=== PATIENT | female | born 1945 | race Caucasian/White ===

== ENCOUNTER 2017-03-04 10:43 | Day surgery (SDC) | payer MEDICARE ==
[~2017-03-04] VITALS: Ht 163.8 cm; Wt 84.8 kg
[2017-03-04] VITALS (10 sets, daily range): BP systolic 141–165; BP diastolic 68–80; PULSE 58–80; RESP 11–17; O2SAT 94–100
--- NOTE | 2017-03-04 10:25 | PCM.HPANE ---
Patient Data Surgeon Admitting Provider: Attending Provider:Kyle Bean MD Primary Care Physician:Ashlyn Wells MD Other Provider:Ana Carbajalingham Anesthesia Reason for Visit Left Breast Cancer, Right Breast Skin Cyst Ht/WT & BMI Height (Feet): 5 Height (Inches): 4.5 Weight (Kilograms): 84.82 Body Mass Index 31.00 Allergies Coded Allergies: codeine (Verified Allergy, Unknown, gi upset, 02/28/17) Past Anesthesia History Anesthesia History: Denies:: Abnormal Airway, Anesthesia Reactions, Difficult Intubation, Fam Anesthesia Reaction Diabetes History Hx Diabetes?: No MRSA MRSA: No Medications Hypertension Medication: Yes Home Meds Incl Beta Tala: Yes Reported Medications Cholecalciferol (Vitamin D3) (Vitamin D)1,000 Unit Tablet1,000 Unit PO DAILY #1 BOTTLE Ref 0 02/04/17 Aspirin 81 Mg [id number] Mg PO DAILY Ref 0 02/04/17 Hydrochlorothiazide 25 Mg [id number] Mg PO DAILY 30 Days Ref 0 02/04/17 Metoprolol Tartrate 25 Mg Giwhty35.5 Mg PO BID 30 Days Ref 0 02/04/17 Meloxicam 7.5 Mg Tablet7.5 Mg PO DAILY 30 Days Ref 0 02/04/17 History History of ENT Problems?: No HEENT History: Denies:: Abnormal Airway Cataracts Difficult Intubation Dysphagia Glaucoma Hearing Problem Sinus Problem TMJ Denture Type: Full- Upper Teeth Condition: Missing Teeth Hx of Heart Problems?: Yes Cardiovascular History: Positive for:: Hypertension Irregular Heartbeat (hx palpitations- MPS done 2012) Denies:: AICD Abdominal Aortic Aneurism Atrial Fibrillation Cardiac Surgery Chest Pain Congestive Heart Failure Coronary Artery Disease Edema Heart Murmur Pacemaker Rheumatic Fever Thrombophlebitis Valvular Heart Disease (ef 83% 2012) Hx of Respiratory Problem?: Yes Respiratory History: Positive for:: Tuberculosis (+ reaction 30years ago/ treated ) Denies:: Asthma COPD Emphysema Oxygen Administration Pneumonia Use of C-PAP Machine Hx Neurologic Problems?: No Neurological History: Denies:: CVA Headaches Multiple Sclerosis Parkinson's Disease Seizures TIA Hx of GI Problems?: Yes Hx of Problems?: No Genitourinary History: Denies:: Kidney Stones Urinary Tract Infection Female Hx: Positive for:: Problems with Breasts? (left breast current admission problem) Denies:: Currently (post menopausal) Skin History: Denies:: History Skin Disorders? (breast bx sites) Pressure Ulcers Hx Musculoskeletal Problems?: No Musculoskeletal History: Positive for:: Osteoarthritis (hands) Denies:: Back Injury Fibromyalgia Joint Replacement Myasthenia Gravis Rheumatoid Arthritis Systemic Lupus Hx of Psycho/Social Problems?: Yes Psycho Social History: Positive for:: Anxiety (situational related to dx- ) Hx Surgeries?: Yes (gallbladder,ovary & tubes) Hx Any Other Health Problems?: Yes Other History: Positive for:: Cancer (left breast cancer) Denies:: Thyroid Disease History Blood Transfusions: Positive for:: Blood Transfusions Hx Diabetes: No Hx Alcohol Use: NoAlcoholic Drinks Per Day: about 2 drinks monthlyHx Substance Use: Yes (rare use of edible marijuana) Smoking Status: Former Smoker Have You Smoked inLast 12 mo: No Stop/Bang Treated for Sleep Apnea?: No Do You Have a CPAP Machine?: No S-Snoring: Do You Snore Loudly: No T-Tired: feel tired, fatigued: No O-Obsered: Observed not breath: No P-Blood Pressure: treated: Yes B- Body Mass Index > 35 kg/m2: No A- Age over 50: Yes N- Neck Large Circumference: No G- Gender Male: No RA Total Score: 2 RA Risk Assessment: Low Risk, <3 Yes Risk Assessment Category Category 1A: Patient has history of documented sleep apnea, and HAS NOT received any narcotic, sedative or anesthesia administration during this stay. Category 1B: Patient has history of documented sleep apnea, and HAS received any narcotic , sedative or anesthesia administration during this stay Category 2: Patient has SUSPECTED Obstructive Sleep Apnea, and HAS received any narcotic , sedative or anesthesia administration during this stay. Category 3: Patient has SUSPECTED Obstructive Sleep Apnea and HAS NOT received narcotic, sedative or anesthesia administration during this stay. Category 4: Outpatient in Procedural Areas with known sleep apnea or who screen positive for High Risk via the STOP/BANG questionnaire. Exam Exam General Appearance: Alert, Oriented X3, Cooperative, No Acute Distress HEENT/AIRWAY: MP 2 Lungs: Clear to Auscultation, Normal Air Movement Heart: Exam Unremarkable, Regular Rate/Rhythm, No Murmurs/Rubs/Gallops Plan Impression Patient chart reviewed, patient interviewed and anesthestic plan with risks, benefits, and alternatives discussed, and informed consent obtained. ASA Physical Status: ASA2 Mod Systemic Disease Anesthetic Plan: GA Bene/Risks/Altern/Consents: Yes HP Complete Prior to Induction: Yes Vadim Su MD Mar 04, 2017 10:25
[~2017-03-04 10:43] MED LIST: ASPI-973 PO; CHOL100043 PO; Dexamethasone 4 mg/mL Inj IVPUSH PRN; EPHEDrine Sulfate 50 mg/mL Inj IVPUSH PRN; HYDR25TA4 PO; Lactated Ringer's 1,000 ML IV SCH; Lactated Ringer's 500 ML IV PRN; MELO-259 PO; METO25TA6 PO; MetoCLOpramide 5 mg/mL 2 mL Inj IVPUSH PRN; Ondansetron 2 mg/mL 2 mL Inj IVPUSH PRN; Phenylephrine 10,000 mCg/mL Inj IVPUSH PRN; fentaNYL-PF 50 mCg/mL 2 mL Inj IVPUSH PRN
[2017-03-04] MEDS ORDERED: fentaNYL-PF 50 mCg/mL 2 mL Inj ONE (10:44)
[2017-03-04] MEDS ORDERED: Propofol 10,000 mCg/mL 20 mL Inj ONE (10:44)
[2017-03-04] MEDS ORDERED: Ondansetron 2 mg/mL 2 mL Inj ONE (10:44)
[2017-03-04] MEDS ORDERED: Dexamethasone 4 mg/mL Inj ONE (10:44)
[2017-03-04] MEDS ORDERED: Ketamine 10 mg/mL 20 mL Inj ONE (10:44)
[2017-03-04] MEDS ORDERED: Lactated Ringer's 1,000 ML IV ONE (11:30)
[2017-03-04] MEDS ORDERED: Bupivacaine-MPF 0.5% W/EPI 30 mL Inj INFILTRATE ONE (15:56)
[2017-03-04] MEDS: Lactated Ringer's 1,000 ML IV SCH ×2 (17:47→18:08)
[2017-03-04] MEDS ORDERED: HYDROcodone-APAP 5-325 mg Tablet PO PRN (18:00)
--- NOTE | 2017-03-04 18:02 | PCM.DISURG ---
Surgical Discharge Instruction Date of Service Mar 04, 2017 Dates of Hospitalization Date of Hospital Admission Providers Admitting Physician: Primary Care Physician: Ashlyn Wells MD Attending Physician: Kyle Bean MD Discharge Diagnosis Discharge Diagnosis Left breast cancer, right breast atypical ductal hyperplasia, right breast cyst Diet Discharge Diet: No restrictions Activity Discharge Activity-General: No restrictions Dressing and Incisional Care Dressing Instructions: Dermabond will peel off gradually Hygiene: May shower Follow Up Plan Follow Up Plan With Dr. Bean in surgery clinic in 7-10 days Call your provider for: Fever (over 101.5), Discharge @ incision, pus discharge Kyle Bean MD Mar 04, 2017 18:02
--- NOTE | 2017-03-04 18:08 | PCM.SURGOP ---
Surgical Operative Report Date of Service: Mar 04, 2017 Pre Operative Diagnosis Left breast cancer, right breast atypical ductal hyperplasia, right breast skin cyst Post Operative Diagnosis Same Procedure: Wire localized right partial mastectomy, wire localized left partial mastectomy , left axillary sentinel lymph node biopsy, excision of right breast skin cyst Surgeon and Application Support Analyst: Surgeon: Kyle Bean MD Assistants: Kwan Vega PA-C Indication for Procedure 71-year-old woman who was found on screening mammogram to have a 1.3 cm invasive ductal carcinoma of the left inferior breast, ER/CA positive, HER-2- negative. Her breast MRI showed the known neoplasm, but also an area of non- mass-like enhancement in the right breast 4 o'clock position. MRI guided biopsy was obtained from that area, which showed focal atypical ductal hyperplasia. Also, at the time of her initial screening mammogram, she had a skin cyst in the right inframammary crease medially which ruptured. After discussion of risks and benefits, she agreed to proceed with wire localized partial mastectomy of both the known cancer on the left and area of ADH on the right, left axillary sentinel node biopsy, and excision of right breast skin cyst. Findings: There was fairly extensive hematoma already present within the right breast tissue from her prior MRI guided biopsy. There were 2 sentinel nodes on the left. The first sentinel node had an ex vivo count of 569. The second sentinel node had an ex vivo count of 313. The background count was 19. Procedure Details Preoperatively, the patient had ultrasound-guided wire placement for the known left breast cancer, with mammographic confirmation. She also had 2 separate wires placed into the right breast with MRI guidance, but no mammographic confirmation was performed. The MRI guidewires were bracketing the known lesion. She then had a left breast injection for sentinel lymph node identification. Finally, she was brought to the operating room where she underwent smooth induction of general anesthesia with an LMA. There was an excellent radiotracer signal in the left axilla, so methylene blue was not utilized. She was placed in the supine position with both arms out, and was prepped and draped in wide sterile fashion. A procedural pause was performed according to the SCOAP checklist, and all were found to be in agreement. Right partial mastectomy was performed first. A curvilinear circumareolar incision was made inferiorly. Skin flaps were raised superiorly and inferiorly. Both wires were delivered into the wound from the lateral aspect. Using the wires as a guide, circumferential dissection was performed with electrocautery. There was fairly extensive hematoma within the breast tissue from her prior procedures. This made dissection somewhat difficult. Both wires were encountered during dissection, but thankfully they were used as bracketing areas to delineate the extent of resection. The right breast tissue was dissected free along with the wires, oriented with suture, and a specimen radiograph was obtained. This confirmed the prior mammographic clip. That tissue was sent for permanent pathology, labeled as right breast tissue. The breast cavity was marked with hemoclips circumferentially. The breast parenchyma was closed with interrupted 3-0 Vicryl sutures. The skin incision was closed with a running 4-0 Vicryl subcuticular stitch. Left partial mastectomy was performed next. A curvilinear circumareolar incision was made inferiorly. Skin flaps were raised superiorly and inferiorly. The wire was delivered into the wound from the lateral aspect. Using the wire as a guide, circumferential dissection was carried out. The left breast tissue was dissected free along with the wire, and this time, the wire was not encountered during dissection. That tissue was oriented with suture, and a specimen radiograph was obtained, confirming the clip marking the lesion. That tissue was sent for permanent pathology, labeled as left breast tissue. A separate anteromedial margin was obtained using electrocautery, which was oriented with suture, and sent for permanent pathology. The cavity was marked with hemoclips circumferentially. The breast parenchyma was closed with interrupted 3-0 Vicryl sutures, and the skin incision was closed with a running 4-0 Vicryl subcuticular stitch. A curvilinear incision was then made in the inferior border of the hairbearing skin in the left axilla. Dissection was carried down until the axillary fascia was incised. Using the gamma probe as a guide, the area of maximum radiotracer activity was identified and dissected free. There were actually 2 separate sentinel nodes. The first sentinel node was dissected free, and its gamma count ex vivo was 569. It was sent for permanent pathology. The second sentinel node was dissected free, and its ex vivo gamma count was 313. The background count in the left axilla was then 19. Both sentinel nodes were labeled separately and sent for permanent pathology. The axillary fascia was closed with a 3-0 Vicryl suture. The skin incision was closed with a running 4-0 Vicryl subcuticular stitch. Dermabond was applied to the existing incisions for dressings and allowed to dry. An elliptical skin incision was then made around the prior ruptured skin cyst on the right inframammary crease. The skin incision measured 2 cm x 1 cm. Dissection was carried around it through normal subcutaneous fat and breast tissue without encountering the cyst. It was sent for permanent pathology. The incision was closed with an interrupted deep 3-0 Vicryl suture, and a running 4-0 Vicryl subcuticular stitch. Dermabond was applied to that incision as a dressing. At the end the case all needle and sponge counts were correct 2. The patient was awakened from anesthesia without difficulty, and taken to the recovery room in satisfactory condition, having tolerated the procedure well. Complications There were no periprocedural complications identified. Surgical Specimen Removed: Yes Specimen sent to Pathology: Yes Surgical Specimen description: Right breast tissue. Left breast tissue. Left breast anteromedial margin. Left axillary sentinel node #1. Left axillar sentinel node #2. Right breast skin cyst. Anesthetic Plan: GA Grafts, Implants: None Output, Estimated Blood Loss: 50 Blood Administration during cano: No Drains: None Catheters: None copies to: Cathleen Phillips MD; Ashlyn Wells MD, Joshua D MD Mar 04, 2017 18:08
--- NOTE | 2017-03-06 07:29 | PCM.ANEP1 ---
Post Anesthesia PACU Phase 1 Assessment Anesthetic Administered: GA Level of Alertness: Drowsy, not talking GARCIA's with Equal Strength: Yes Pain: No Nausea or Vomiting: No CV Function & Hydration Stable: Yes Airway Device: Oralpharangeal Airway Lungs: Clear to Auscultation, Normal Air Movement Dermatome Level: Full Sensation PACU Phase 2 Assessment Complications: No Follow up Care: No Patient Instructions Provided: N/A Vadim Su MD Mar 06, 2017 07:29
--- NOTE | 2017-03-06 15:39 | PATH ---
SURGICAL PATHOLOGY Attending Physician:Dawit Franks CASE STATUS: Signed Out PATIENT NAME: URSZULA QUIÑONES PID: [id number] : 1945 DATE COLLECTED:03/04/2017 00:00 SPECIMEN: 1: Breast Mass, Excision (Wire Localization) 2: Breast Mass, Excision (Wire Localization) 3: Breast Margin 4: [place] Lymph Node 5: [place] Lymph Node 6: Skin, Cyst CLINICAL HISTORY: LEFT BREAST CANCER, RIGHT BREAST BENIGN ATYPICAL DUCTAL HYPERPLASIA, RIGHT BREAST SKIN CYST 1). RIGHT BREAST TISSUE, LONG STITCH LATERAL, SHORT STITCH SUPERIOR 2). LEFT BREAST TISSUE, LONG STITCH LATERAL, SHORT STITCH SUPERIOR 3). LEFT BREAST GITA-MEDIAL MARGIN, LONG STITCH POSTERIOR, SHORT STITCH SUPERIOR 4). LEFT AXILLARY SENTINEL NODE #1 (569 COUNT) 5). L AXILLARY SENTINEL NODE #2 (313 COUNT) 6). R BREAST SKIN CYST FINAL DIAGNOSIS: 1.RIGHT BREAST WIRE LOCALIZATION EXCISIONAL SPECIMEN: MULTIPLE FOCI OF INTRADUCTAL PAPILLARY HYPERPLASIA NEGATIVE FOR SIGNIFICANT ATYPIA. INFLAMMATORY CHANGES CONSISTENT WITH PREVIOUS BIOPSY:2.LEFT BREAST WIRE LOCALIZATION EXCISIONAL SPECIMEN: INVASIVE BREAST CARCINOMA (SEE CAP CANCER SUMMARY BELOW): 3.LEFT BREAST ANTERIOR MEDIAL MARGIN: BENIGN BREAST TISSUE, NEGATIVE FOR ATYPIA. 4. 5.LEFT AXILLARY SENTINEL LYMPH NODES NUMBERS 1 AND 2: NEGATIVE FOR MALIGNANCY (SEE BREAST CANCER SUMMARY BELOW). 6.RIGHT BREAST SKIN CYST: BENIGN BREAST TISSUE AND SKIN WITH INFLAMMATORY CHANGES CONSISTENT WITH THOSE OF PREVIOUS BIOPSY, NEGATIVE FOR ATYPIA. CAP CANCER CASE SUMMARY INVASIVE CARCINOMA OF THE BREAST: PROCEDURE: WIRE LOCALIZATION BREAST EXCISION LYMPH NODE SAMPLING: TWO SENTINEL LYMPH NODES SPECIMEN LATERALITY: LEFT TUMOR SITE: INFERIOR PORTION OF BREAST TUMOR SIZE: 1.2 X 1.1 X 0.8 CM HISTOLOGIC TYPE: INFILTRATING DUCTAL CARCINOMA HISTOLOGIC GRADE: GUERO HISTOLOGIC SCORE 5 OF 9 Glandular/Tubular differentiation: Score 2 of 3 Nuclear Pleomorphism: Score 2 of 3 Mitotic Rate: Score 1 of 3 Overall Grade: Grade 1 of 3 (Low grade) TUMOR FOCALITY: SINGLE FOCUS DUCTAL CARCINOMA IN SITU: PRESENT Size (Extent) of DCIS: LARGEST FOCUS 0.2 CM Architectural patterns: SOLID Nuclear grade: Grade INTERMEDIATE Necrosis: ABSENT MARGINS INVASIVE CARCINOMA: Anterior: LESS THAN 0.1 CM Posterior: 1.7 CM Superior: 0.7 CM Inferior: 2.4 CM Medial: 2.3 CM Lateral: 2.1 CM DUCTAL CARCINOMA IN SITU: Anterior: 0.2 CM ALL REMAINING MARGINS GREATER THAN 1.0 CM LYMPH NODES Total number of lymph nodes examined: 2 Number of sentinel lymph nodes examined: 2 Lymph Node Involvement: BOTH NODES NEGATIVE FOR TUMOR Method of Evaluation of [place] Lymph Nodes: H&E SECTIONS LYMPH-VASCULAR INVASION: NEGATIVE PATHOLOGIC STAGING: AJCC, 7th ed., 2010 PRIMARY TUMOR: pT1c REGIONAL LYMPH NODES: pN0 (sn) ADDITIONAL PATHOLOGIC FINDINGS: FOCAL AREAS OF PAPILLARY INTRADUCTAL HYPERPLASIA, NEGATIVE FOR ATYPIA ANCILLARY STUDIES: (DATA OBTAINED FROM SURGICAL OPERATIVE NOTE) BIOMARKERS PERFORMED ON PREVIOUS BIOPSY Estrogen Receptor (ER) Status: POSITIVE Progesterone Receptor (PgR) Status: POSITIVE HER2 (by immunohistochemistry): NEGATIVE ICD10 CODEC50.512 GROSS DESCRIPTION: The specimens are received in formalin, labeled with the patient's name, and sublabeled as the following: (1) right breast tissue (long lateral/short superior); (2) left breast tissue (long lateral/short superior); (3) left breast anterior medial (short superior-long posterior); (4) sentinel node; (5) L. axillary sent lymph node; (6) R breast skin cyst. (1) The specimen consists of a piece of breast tissue (5.2 cm AP, 2.8 cm SI, 9.3 cm ML) with no overlying skin. The specimen is oriented with 2 black sutures (short-superior, long-lateral). 2 localization wires are present. The specimen is serially sectioned ML into 29 slices with the medial and lateral resection margins slices #1 and #29 respectively. The breast tissue is fatty and contains a nye-white solid irregularly firm ill-defined fibrous cystic area (6.7 x 2.2 x 1.5 cm) within slices #1-#21. The cavity contains clear colorless gelatinous material. This area is less than 0.1 cm from the anterior, 3.5 cm posterior, less than 0.1 cm from the superior, 0.5 cm from the inferior, less than 0.1 cm from the medial, and 2.6 cm from the lateral resection margins. No other nodules, masses or lesions are identified. Ink code: purple-anterior; yellow-posterior; black-superior; orange-inferior; green-medial; blue-lateral. Section code: (1A) medial resection margin, perpendicularly sectioned, entirely submitted; (1B) slice #2, entirely submitted; (1C) slice #3, entirely submitted; (1D) slice #4, entirely submitted; (1E) slice #5, entirely submitted; (1F) slice #6, premium representative; (1G) slice #7, premium representative; (1H) slice #8, premium representative; (1I) slice #9, premium representative; (1J) slice #10, entirely submitted; (1K) slice #11, premium representative; (1L) slice #12, premium representative; (1M) slice #13, premium representative; (1N) slice #14, premium representative; (1O) slice #15, premium representative; (1P) slice #16, premium representative; (1Q) slice #17, premium representative; (1R) slice of 18, premium representative; (1S) slice #19, premium representative; (1T) slice #20, premium representative; (1U) slice #21; (1V) slice #22, entirely submitted; (1W) lateral resection margin, perpendicularly sectioned, entirely submitted. (2) The specimen consists of a piece of breast tissue (2.2 cm AP, 4.0 cm SI, 5.5 cm ML) with no overlying skin. The specimen is oriented with 2 black sutures (short-superior, long-lateral). A localization wire is present. The specimen is serially sectioned ML into 15 slices with the medial and lateral resection margins slices #1 and #15 respectively. The breast tissue is fatty and contains a nye-white solid firm irregular mass (1.2 x 1.1 x 0.8 cm) within slices #8-#10. The mass is less than 0.1 cm from the anterior, 1.7 cm from the posterior, 0.7 cm from the superior, 2.4 cm from the inferior, 2.3 cm from the medial, and 2.1 cm from the lateral resection margins. No other nodules, masses or lesions are identified. Ink code: purple-anterior; yellow-posterior; black-superior; orange-inferior; green-medial; blue-lateral. Section code: (2A) medial resection margin, perpendicularly sectioned, premium representative; (2B) slice #4, premium representative; (2C) slice #5, premium representative; (2D) slice #6, premium representative; (2E) slice #7, tissue adjacent to mass, entirely submitted; (2F-2G) slice #8, bisected and submitted SI, entirely submitted; (2H) slice #9, bisected SI, superior half submitted; (2I) slice #10, bisected SI, superior half submitted; (2J-2K) slice #11, tissue adjacent to Mass: Bisected and submitted SI, entirely submitted; (2L) slice #12, bisected SI, superior half submitted; (2M) lateral resection margin, perpendicularly sectioned, premium representative. (3) the specimen consists of a piece of breast tissue (4.5 cm AP, 5.5 cm SI, 0.5 cm ML) with no overlying skin. The specimen is oriented with 2 black sutures (long-posterior, short-superior). No localization wire is present. The breast tissue is fatty with no nodules, masses or lesions identified. Ink code: purple-anterior; yellow-posterior; black-superior; orange-inferior; green-medial; blue-lateral. Section code: (3A-3G) breast tissue, serially sectioned and submitted ML. Specimen entirely submitted. (4) The specimen consists of a lymph node (1.1 x 0.9 x 0.5 cm). Section code: (4A) one lymph node, serially sectioned. Specimen entirely submitted. (5) The specimen consists of a lymph node (1.1 x 0.5 x 0.5 cm). Section code: (5A) one lymph node, serially sectioned. Specimen entirely submitted. (6) The specimen consists of an unoriented ellipse of skin with subcutaneous tissue (2.5 x 2.0 x 0.9 cm). The skin is garcia-pink and puckered. The subcutaneous tissue is fatty and focally fibrous which coincides with the overlying puckered skin. No nodules, masses or lesions are identified. Ink code: black-resection margin. Section code: (6A) ellipse of skin, serially sectioned, premium representative. Note: Approximate total fixation time in formalin for all specimens-26 hours and 30 minutes using a collection date of March 04, 2017 with a time and fixative of 1730. 03/05/17 JM MICRO DESCRIPTION: See diagnosis. ICD-9 CODES: CPT CODES: 1: 01204 2: 49638 3: 28831 4: 41586 5: 41293 6: 18700 Electronically Signed Out Jean-Paul Daen MD [facility] [address], [place] [address] Technical component performed at [facility], [address], [place], [address]
--- NOTE | 2017-03-10 13:25 | DRSVH ---
SPECIMEN: 03/04/2017 CLINICAL: Right breast specimen. Correlation is made to exams dated: 02/20/2017 MRI biopsy, 02/20/2017 mammogram - [facility], breast MRI - [facility], 01/13/2017 mammogram, 01/10/2014 mammogram, and 11/11/2011 mammogram - [facility]. IMPRESSION: SPECIMEN Surgical specimen containnig a post biopsy marker and portions of two localization wires. This exam was interpreted at Station ID: [id number]. Lj Conteh M.D. cj/:03/10/2017 12:08:13 Additional referring physicians: CORBY LONDON
--- NOTE | 2017-03-10 13:25 | DRSVH ---
SPECIMEN: 03/04/2017 CLINICAL: Left breast specimen. Correlation is made to exams dated: 03/04/2017 localization, 03/04/2017 mammogram - [facility] , 02/14/2017 breast MRI - [facility], 01/23/2017 mammogram, 01/10/2014 mammogram, and 11/11/19 mammogram - [facility]. Left Breast specimen containing a portion of the localization wire, the mammographic abnormality and a post biopsy marker. IMPRESSION: SPECIMEN Left Breast specimen containing a portion of the localization wire, the mammographic abnormality and a post biopsy marker. This exam was interpreted at Station ID: [id number]. Lj Conteh M.D. cj/:03/10/2017 12:06:58 Additional referring physicians: CORBY LONDON
== END 2017-03-04 23:59 | disposition home or self-care (01) ==
LOC: SAS 10:43
PROVIDERS: ATTEND Student in an Organized Health Care Education/Training Program
DX: C50.512 Malignant neoplasm of lower-outer quadrant of left female breast (principal); N60.81 Other benign mammary dysplasias of right breast; N60.01 Solitary cyst of right breast; I10 Essential (primary) hypertension; I47.1 Supraventricular tachycardia; K21.9 Gastro-esophageal reflux disease without esophagitis; M54.30 Sciatica, unspecified side; K64.9 Unspecified hemorrhoids; Z79.890 Hormone replacement therapy; Z87.891 Personal history of nicotine dependence; Z17.0 Estrogen receptor positive status [ER+]
CPT/HCPCS: 19120; 19301; 38525; 38792; 76098; A9541; J1100; J2405; J3010; J7120